=== PATIENT | male | born 1975 | race Caucasian/White ===

== ENCOUNTER 2018-12-23 09:42 | Emergency (ER) | payer SELFPAY ==
[~2018-12-23] VITALS: Ht 162.6 cm; Wt 74.0 kg
[2018-12-23] MEDS ORDERED: LIDOCAINE HCL/PF 1% 10 MG/ML 5ML VIAL IJ ONE (10:30)
[2018-12-23] MEDS ORDERED: TETANUS, DIPHTHERIA, PERTUSSIS VAC/PF 0.5ML (>7YR OLD) IM ONE (10:30)
[2018-12-23] MEDS ORDERED: ACETAMINOPHEN WITH CODEINE 300/30MG TABLET PO ONE (10:30)
[2018-12-23] MEDS ORDERED: BACITRACIN ZINC OINT UDPKT TOP ONE (10:30)
[2018-12-23] MEDS ORDERED: AMOXICILLIN/POTASSIUM CLAVULANATE 875/125MG TAB PO ONE (11:15)
[2018-12-23 12:07] VITALS: BP 147/81
== END 2018-12-23 12:07 | disposition home or self-care (01) ==
LOC: ER 10:03
DX: S61.210A Laceration without foreign body of right index finger without damage to nail, initial encounter (principal); W20.8XXA Other cause of strike by thrown, projected or falling object, initial encounter; Y93.89 Activity, other specified; Y92.89 Other specified places as the place of occurrence of the external cause; Y99.0 Civilian activity done for income or pay; R03.0 Elevated blood-pressure reading, without diagnosis of hypertension; Z23 Encounter for immunization
CPT/HCPCS: 12001; 73140; 90471; 90715; 99284; J3490; Z7610

== ENCOUNTER 2018-12-25 09:44 | Emergency (ER) | payer SELFPAY ==
[~2018-12-25] VITALS: Ht 160 cm; Wt 74.0 kg
[2018-12-25 10:01] VITALS: BP 173/87
== END 2018-12-25 11:11 | disposition home or self-care (01) ==
LOC: ER 09:44
DX: Z48.00 Encounter for change or removal of nonsurgical wound dressing (principal); R03.0 Elevated blood-pressure reading, without diagnosis of hypertension
CPT/HCPCS: 99281

== ENCOUNTER 2018-12-30 10:24 | Emergency (ER) | payer SELFPAY ==
[~2018-12-30] VITALS: Ht 160 cm; Wt 79.0 kg
[2018-12-30 13:01] VITALS: BP 164/84
== END 2018-12-30 19:00 | disposition home or self-care (01) ==
LOC: ER 18:23
DX: Z48.02 Encounter for removal of sutures (principal)
CPT/HCPCS: 99282